=== PATIENT | male | born 1950 | race African-American/Black ===

== ENCOUNTER → 2018-07-19 | Outpatient (CLI) | payer BC ==
--- NOTE | 2018-07-19 10:04 | PCVCIMAG ---
EXAM: BILATERAL LOWER EXTREMITY ARTERIAL DUPLEX INDICATION: Peripheral Arterial Disease. Leg pain. FINDINGS: Right Leg: Common femoral and profunda femoral arteries are patent. Segmental occlusion distal tejon superficial femoral artery. Popliteal artery refills and is patent. The anterior tibial, peroneal, and posterior tibial arteries are patent. Left Leg: Satisfactory arterial waveforms throughout the common/profunda/superficial femoral, popliteal, anterior tibial, peroneal, and posterior tibial arteries. No flow limiting stenosis seen. IMPRESSION: Segmental occlusion distal tejon right superficial femoral artery. No flow limiting stenosis in the left lower extremity. LOC:[id number]
== END | disposition home or self-care (01) ==
LOC: PCVCIMAG 08:46
PROVIDERS: ATTEND Nuclear Medicine Nuclear Cardiology
DX: I73.9 Peripheral vascular disease, unspecified (principal); Z87.891 Personal history of nicotine dependence
CPT/HCPCS: 93925

== ENCOUNTER → 2018-07-22 | Outpatient (CLI) | payer BC ==
[~2018-07-22] MED LIST: REGADENOSON 0.4 MG/5 ML DISP.SYRIN. IV ONE
--- NOTE | 2018-07-26 12:55 | PCVCIMAG ---
APPROVED REPORT Imaging Protocol: Rest Tc-99m/Stress Tc-99m 1 day Study performed: 07/22/2018 13:15:22 Indication: CAD, High Ca Score Patient Location: Out-Patient Stress Nurse: Raquel Herrera RN, Ellie Case RN [place] Tech:Rhonda RodrigueshbunTEVINMT Ht: 5 ft 7 in Wt: 165 lbs BSA: 1.86 m2 HR: 65 bpm BP: 141/97 mmHg BMI: 25.8 Rhythm: Normal Sinus Rhythm Medical History Medical History: HTN, Hyperlipidemia, PVD, CAD, Former Smoker Medications: Lisinopril, Atorvastatin, Norvasc Allergies: No known drug allergies Cardiac Risk Factors: Age Pretest Chest Pain Characteristics: No chest pain Exercise History: Physically active Resting Data Rest SPECT myocardial perfusion imaging was performed in supine position 45 minutes following the intravenous injection of 9.3 mCi of Tc-99m Sestamibi. Time of rest injection: 1250 Date: 07/22/2018 Administration Route: IV Administration Site: Right AC Pharmacologic Stress Pharmacologic stress test was performed by injecting Regadenoson 0.4 mg IV push over 10-15 seconds immediately followed by the intravenous injection of 32.3 mCi of Tc-99m Sestamibi. Time of stress injection: 1415 Date: 07/22/2018 Administration Route: IV Administration Site: Right AC Gated Stress SPECT was performed 45 minutes after stress injection. The images were gated to evaluate regional wall motion and calculate left ventricular ejection fraction. Stress Test Details Stress Test: Pharmacologic stress was paired with low level exercise. Reason for pharmacologic stress test: Right lower extremity claudication. HRMax Heart Rate (APMHR): 152 bpm Resting HR: 65 bpmTarget HR (85% APMHR): 129 bpm Max HR Achieved: 110 bpm % of APMHR: 72 Recovery HR: 68 bpm BP Resting BP: 141/97 mmHg Max BP: 184/86 mmHg Recovery BP: 171/83 mmHg ECG Resting ECG: Normal Sinus Rhythm Stress ECG: Sinus Tachycardia Arrhythmia: Rare PVC's Recovery ECG: Sinus Rhythm Clinical Reason for Termination: Completed protocol Stress Symptoms: Leg Fatigue Exercise duration: 4 min 00 sec Exercise capacity: 1.6 METs Symptoms resolved during recovery. Stress ECG Conclusion ECG: Non-ischemic Study Quality Study: Good Study Data Post stress, the left ventricular ejection was 61%.. SSS: 0 SRS: 0 SDS: 0 TID = 1.09. Perfusion No evidence of stress induced ischemia or prior myocardial infarction. Wall Motion Normal left ventricular size and function with no regional wall motion abnormalities. Nuclear Conclusion No evidence of stress induced ischemia or prior myocardial infarction. Normal left ventricular size and function with no regional wall motion abnormalities. Post stress, the left ventricular ejection was 61%. No prior study available for comparison. Interpreted by: Kvng Scott MD Electronically Approved: 07/22/2018 19:47:24 <Conclusion> ECG: Non-ischemic
== END | disposition home or self-care (01) ==
LOC: PCVCIMAG 12:29
PROVIDERS: ATTEND Nuclear Medicine Nuclear Cardiology
DX: I25.10 Atherosclerotic heart disease of native coronary artery without angina pectoris (principal); R93.1 Abnormal findings on diagnostic imaging of heart and coronary circulation
CPT/HCPCS: 78452; 93017; A9500; J2785

== ENCOUNTER → 2018-10-29 | Outpatient (CLI) | payer BC ==
--- NOTE | 2018-10-29 12:00 | PCVCIMAG ---
APPROVED REPORT Indications Bruit Doppler Spectral Velocity Analysis PSV / EDVPSV / EDV ECA (R) 72 / 12 cm/sECA (L) 71 / 10 cm/s dICA (R) 111 / 46 cm/sdICA (L) 89 / 41 cm/s Hernandez (R) 87 / 35 cm/smICA (L) 86 / 39 cm/s pICA (R) 89 / 31 cm/spICA (L) 65 / 19 cm/s Bulb (R) 62 / 16 cm/sBulb (L) 69 / 16 cm/s dCCA (R) 87 / 26 cm/sdCCA (L) 82 / 23 cm/s mCCA (R) 102 / 26 cm/smCCA (L) 117 / 31 cm/s Vert (R) 47 / 12 cm/sVert (L) 70 / 22 cm/s ICA/CCA 1.28ICA/CCA 1.09 Findings The right carotid bulb has moderate plaque. The right proximal internal carotid artery shows <40% stenosis. The right common carotid artery shows no significant stenosis. The right external carotid artery shows no significant stenosis. The left carotid bulb has mild plaque. The left proximal internal carotid artery shows no significant stenosis. The left common carotid artery shows no significant stenosis. The left external carotid artery shows no significant stenosis. Conclusion 1. Right internal carotid artery stenosis (<40%) 2. Left internal carotid artery plaquing without significant stenosis 3. Antegrade vertebral flow
--- NOTE | 2018-10-29 13:13 | PCVCIMAG ---
EXAM: AORTOILIAC DUPLEX INDICATION: Peripheral arterial disease FINDINGS: AORTA: Suprarenal aorta measures maximum diameter of 2.5 cm. There is not a fusiform infrarenal aortic aneurysm. The infrarenal aorta measures maximum diameter of 2.0 cm. No aortic stenosis. RIGHT COMMON ILIAC ARTERY: Maximum diameter is 1.0 cm. No significant stenosis. RIGHT EXTERNAL ILIAC ARTERY: No significant stenosis. LEFT COMMON ILIAC ARTERY: Maximum diameter is 0.8 cm. No significant stenosis. LEFT EXTERNAL ILIAC ARTERY: No significant stenosis. IMPRESSION: No abdominal aortic aneurysm. No aortoiliac stenosis seen. LOC:OFFICE
--- NOTE | 2018-10-29 13:14 | PCVCIMAG ---
EXAM: RIGHT LOWER EXTREMITY ARTERIAL DUPLEX INDICATION: Peripheral Arterial Disease. Leg pain. FINDINGS: Right Leg: Satisfactory arterial waveforms throughout the common/profunda/superficial femoral, popliteal, anterior tibial, peroneal, and posterior tibial arteries. No flow limiting stenosis seen. Previous distal right superficial femoral artery stent maintaining satisfactory patency. IMPRESSION: No flow limiting stenosis in the right lower extremity. Previous distal right superficial femoral artery stent maintaining satisfactory patency. LOC:OFFICE
== END | disposition home or self-care (01) ==
LOC: PCVCIMAG 10:04
PROVIDERS: ATTEND Nuclear Medicine Nuclear Cardiology
DX: I65.23 Occlusion and stenosis of bilateral carotid arteries (principal); I73.9 Peripheral vascular disease, unspecified
CPT/HCPCS: 93880; 93926; 93978

== ENCOUNTER → 2018-11-09 | Outpatient (CLI) | payer BC ==
--- NOTE | 2018-11-09 17:34 | PCVCIMAG ---
APPROVED REPORT Study performed: 11/09/2018 10:14:35 EXAM: Comprehensive 2D, Doppler, and color-flow Echocardiogram Patient Location: Echo lab Status: routine BSA: 1.82 HR: 55 bpmBP: 130/80 mmHg Rhythm: NSR Other Information Study Quality: Good Risk Factors: Cardiac Risk Factors: HTN, Hyperlipidemia Indications Murmur Elevated calcium score, PAD 2D Dimensions IVSd: 7.24 (7-11mm)LVOT Diam: 19.91 (18-24mm) LVDd: 42.21 mm PWd: 7.24 (7-11mm)Ascending Ao: 31.98 (22-36mm) LVDs: 29.75 (25-40mm) Left Atrium: 35.39 (27-40mm) Aortic Root: 26.32 mm LV Single Plane 4CH: 69.26 % LV Single Plane 2CH: 63.78 % Biplane EF: 66.5 % Volumes Left Atrial Volume (Systole) Single Plane 4CH: 40.18 mLSingle Plane 2CH: 54.23 mL LA ESV Index: 27.00 mL/m2 Aortic Valve AoV Peak Kevin.: 1.90 m/s AO Peak Gr.: 14.51 mmHgLVOT Max P.57 mmHg LVOT Max V: 1.28 m/s TESS Vmax: 2.10 cm2 Mitral Valve E/A Ratio: 0.6 MV Decel. Time: 308.61 ms MV E Max Keivn.: 0.48 m/s MV A Kevin.: 0.87 m/s IVRT: 148.79 ms TDI E/Lateral E': 8.00E/Medial E': 9.60 Medial E' Kevin.: 0.05 m/s Lateral E' Kevin.: 0.06 m/s Pulmonary Valve PV Peak Gr.: 2.79 mmHg Tricuspid Valve TR Peak Kevin.: 2.39 m/s TR Peak Gr.: 22.79 mmHg Left Ventricle The left ventricle is normal size. There is normal LV segmental wall motion. There is normal left ventricular wall thickness. Left ventricular systolic function is normal. The left ventricular ejection fraction is within the normal range. LVEF is 65%. The left ventricular diastolic function is normal. Right Ventricle The right ventricle is normal size. The right ventricular systolic function is normal. Atria The left atrium size is normal. The right atrium size is normal. Aortic Valve The aortic valve is normal in structure. No aortic regurgitation is present. There is no aortic valvular stenosis. Mitral Valve The mitral valve is normal in structure. There is no mitral valve regurgitation noted. No evidence of mitral valve stenosis. Tricuspid Valve The tricuspid valve is normal in structure. Trace tricuspid regurgitation. Pulmonary artery pressure is 30mmHg. Pulmonic Valve The pulmonary valve is normal in structure. There is no pulmonic valvular regurgitation. Great Vessels The aortic root is normal in size. IVC is normal in size and collapses >50% with inspiration. Pericardium There is no pericardial effusion. <Conclusion> The left ventricle is normal size. LVEF is 65%. The left ventricular diastolic function is normal. The right ventricle is normal size. The left atrium size is normal. The aortic valve is normal in structure. There is no mitral valve regurgitation noted. Trace tricuspid regurgitation. Pulmonary artery pressure is 30mmHg. The aortic root is normal in size. There is no pericardial effusion.
== END | disposition home or self-care (01) ==
LOC: PCVCIMAG 09:57
PROVIDERS: ATTEND Internal Medicine Cardiovascular Disease
DX: I25.10 Atherosclerotic heart disease of native coronary artery without angina pectoris (principal); I10 Essential (primary) hypertension; R01.1 Cardiac murmur, unspecified; E78.5 Hyperlipidemia, unspecified
CPT/HCPCS: 93306